=== PATIENT | male | born 1950 | race Caucasian/White ===

== ENCOUNTER 2019-08-23 11:08 | Outpatient (RCR) | payer MEDICARE, SELFPAY ==
--- NOTE | 2019-08-23 16:27 | ST.OPIE ---
Visit Care Team Role Provider Type Delfino Lazo MD Primary Care Provider Physician Specialty: Family Practice Address: [facility] [address], [address] [place] [address], [place], [address] Email: [email or web address] Paul Chavarria MD Attending Provider Physician Specialty: Ear, Nose, Throat Address: [address] [place] [address], [id number] Email: [email or web address] Speech-Language Pathology Initial Evaluation CARD SERVICES SPECIALIST Voice Resonance Evaluation Start: 08/23/19 14:55 Freq: Status: Active Protocol: Document 08/23/19 14:56 LNK (Rec: 08/23/19 15:34 LNK [id number]) Voice and Resonance Assessment Session Time Visit Start Time 11:30 Visit Stop Time 12:30 Total Visit Minutes 60 Visit Information Visit Number 1 Plan of Care Dates 08/22/19-11/21/19 Next Note Type Next Note Type Re-Evaluation Referral Referring Physician Dr Chavarria Setting Setting Outpatient Care Patient History General Information Ashvin (Leilani Grigsby was seen today at the referral of Dr. Chavarria. According to the referral, the pt was scheduled for a dysphagia evaluation. However, when brought up to him, he denied any problems with swallowing. I'm here for my speech, Braxton noted. According Braxton's report of his medical history, he was diagnosed with right tonsillar cancer approximately 3 years ago. He has not had conventional treatment for his cancer. He recently returned from [facility] where he was treated via a program utilizing supplements, alternative treatments and diet. He reports that his tumor has shrunk with this program. Oral Motor Assessment Source: [employer] ([employer]IZ[employer]). Oral-Motor Eval Completed Yes Oral-Motor Assessment Diminished strength, speech and ROM of oral structures on the right side of his face. At rest there is no facial droop. When broadly smiling, there is diminished movement of the lower right 1/3 of his face. He reports that the rest of the right side of his face is still not normal. 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 Intraorally, the right side of Braxton's velum presents with reduced tissue and a deviation beyond the right faucial pillar, when he says the hole to the nasal cavity is located. There is reduced range of motion of the velum on phonation. Braxton's dentition is natural teeth in good health and hygiene. Lingual strength, speed and strength were WFL. 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 He demonstrated right side weakness of his lower 1/3 of his face. Additionally, Braxton's voice was hypernasal. 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 As a result, Braxton reported that his voice is hypernasal and he needs to be careful drinking liquids or the liquid will come out of his nose. - Laryngeal Performance Resonance Nasal Resonance Hypernasal,Nasal Emission, Assimilation Nasality Therapeutic Techniques Other Tactics Discussed a prosthetic device to close the hole in his velar area. this will reduce the hypernasal vocal quality and keep fluids for going into his nasal cavity. Voice/Resonance Assessment Assessment Braxton Grigsby presented with s/p alternative cancer treatment, which has effective in reducing the size of the tumor . He presented with Bird's palsy and a hypernasal vocal quality. Discussion of a prosthetic obtruator to close the opening to his nose was pursued. Pt education re: the nature of the the obturator was provided. It was recommended that Braxton be referred to [facility]'s dental program e: prosthetic obturator and/or to the cleft palate clinic re: resonance. Finally, speech therapy was recommended after Braxton gets the prosthesis to address any residual hypernasality . Prognosis Rehabilitation Potential Good - Recommendations Treatment Recommended Yes Therapy Recommendations Speech therapy was recommended after Braxton gets the prosthesis to address any residual hypernasality. Referrals Voice/Resonance Other Referral [facility] dental clinic for prosthesis and cleft palate clinic for resonance Patient/Caregiver Education Patient/Family Education Patient Understanding
--- NOTE | 2019-11-22 11:13 | ST.OPDS ---
Visit Care Team Role Provider Type Delfino Lazo MD Primary Care Provider Physician Address: [facility] [address], [address] [facility], [place], [address] Paul Chavarria MD Attending Provider Physician Address: [address] [place] [address], [address] RECORDING ENGINEER Treatment Note RECORDING ENGINEER Treatment Note Start: 08/23/19 14:55 Freq: Status: Active Protocol: Document 11/22/19 11:10 LNK (Rec: 11/22/19 11:13 LNK [id number]) Speech Pathology Treatment Note Visit Type Note Type Discharge Summary General Information General Information According Braxton's report of his medical history, he was diagnosed with right tonsillar cancer approximately 3 years ago. He has not had conventional treatment for his cancer. He recently returned from [facility] where he was treated via a program utilizing supplements, alternative treatments and diet. He reports that his tumor has shrunk with this program. Pt education re: the nature of the the obturator was provided. It was recommended that Braxton be referred to [facility]'s dental program e: prosthetic obturator and/or to the cleft palate clinic re: resonance. Finally, speech therapy was recommended after Braxton gets the prosthesis to address any residual hypernasality . Subjective Comment Pt has not returned to this clinic since the initial assessment. Assessment Progress Towards Goals Appropriate for Discharge Plan Frequency of Treatment No Further Therapy Therapy Recommendations Discharge to Home Exercise Program
== END 2019-11-22 13:08 ==
LOC: SP 11:08
PROVIDERS: PCP Family Medicine Geriatric Medicine; Visit Provider Otolaryngology
DX: R13.19 Other dysphagia (principal); C09.9 Malignant neoplasm of tonsil, unspecified
CPT/HCPCS: 92524

== ENCOUNTER → 2022-01-31 12:59 | Outpatient (CLI) | payer MEDICARE, SELFPAY ==
--- NOTE | 2022-01-31 | DI.NM.S_ITS ---
PROCEDURE: [place] BONE SCAN WHOLE BODY RADIOPHARMACEUTICAL: 19.4 mCi Tc-99m MDP IV. 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 Anterior and posterior views were acquired from vertex to feet. Additional left and right oblique views of the pelvis were obtained. COMPARISON: None. FINDINGS: Degenerative uptake of radiotracer at the acromioclavicular, glenohumeral, knee, and ankle joints is present. No increased radiotracer uptake to indicate metastasis. There appears to be mild to moderate left hydronephrosis. IMPRESSION: 1. No evidence of bony metastasis. 2. Left hydronephrosis. This could be further assessed initially with ultrasound, if clinically indicated. Dictated by: Shawn Talbot M.D. on 01/31/2022 at 16:46 Approved by: Shawn Talbot M.D. on 01/31/2022 at 16:47
== END ==
PROVIDERS: PCP Family Medicine
DX: C61 Malignant neoplasm of prostate (principal); C79.51 Secondary malignant neoplasm of bone; N13.30 Unspecified hydronephrosis
CPT/HCPCS: 78306; A9503

== ENCOUNTER 2023-03-20 10:03 | Day surgery (SDC) | payer MEDICARE, SELFPAY ==
[2023-03-20] VITALS (10 sets, daily range): BP systolic 118–137; BP diastolic 58–71; PULSE 54–68; RESP 10–16; TEMP 36.1; O2SAT 94–100; BMI 25.1
[2023-03-20] MEDS: LACTATED RINGERS 1,000 ML 100 ML IV ×2 (10:33→14:04)
--- NOTE | 2023-03-20 11:12 | SUR.PREOP ---
Right chest wall portacath site accessed using sterile technique using 20 gauge 1.0 inch power port needle; good blood return noted, flushes well; tolerated well. Sterile dressing applied. IV fluids infusing without difficulty.
--- NOTE | 2023-03-20 11:44 | PM.PREOP ---
Pre-operative Note Interval Note History & Physical reviewed/Exam performed by Physician: Yes Changes to H&P: No
[2023-03-20] MEDS: CEFAZOLIN 2 GM/100 ML PREMIX 100 ML IV (12:06)
--- NOTE | 2023-03-20 12:17 | SUR.OPER ---
Supine on padded OR bed, head on pillow, arms secured on padded arm boards at <90 degrees abduction, legs uncrossed, safety belt at thigh, tape over blanket over lower legs.
--- NOTE | 2023-03-20 13:01 | PM.OP.1 ---
Operative Date/Time/Diagnoses Date of procedure: 03/20/23 Time of procedure: 13:01 Pre-op diagnosis: umbilical hernia Post-op diagnosis: same Procedure & Clinicians Procedure: Open umbilical hernia repair with mesh Same procedure as scheduled: Yes Indications: Symptomatic reducible umbilical hernia Surgeon: Alexey Weeks Click Yes if Unassisted: Yes Anesthesia Type: General Operative Notes Findings: 2 cm fascial defect containing omentum Specimen(s): none sent Estimated Blood Loss (mL): 10 Procedure in detail: Patient was brought to the operating room placed supine on the table. Bilateral lower extremity compression devices were applied. General anesthesia was induced and they were intubated with an endotracheal tube. They received 2 g of Ancef prior to skin incision. They were prepped and draped in sterile fashion. A time-out was performed. A curvilinear incision was made inferior to the umbilicus. The subcutaneous tissues were divided. The umbilical hernia was identified and the hernia sac was dissected off the umbilical skin and circumferentially off of the fascia defect. The hernia sac was sharply opened and contained viable omentum. The omentum was reduced back into the abdomen. Using blunt dissection I carefully carefully freed the hernia sac from beneath the fascia defect in order to accomodate the mesh. The fascia defect was 1.5 cm in maximal diameter. A Bard Ventralex ST hernia patch 4 cm was inserted beneath the fascia defect and above the peritoneum in a sublay position. The mesh was anchored in multiple locations using Ethibond suture to the fascia and the fascial defect was closed over the mesh. The umbilical skin was tacked to the subcutaneous tissues and then the remainder of the subcutaneous tissues were reapproximated using 3 0 Vicry,l skin closed with 4 0 Monocryl followed by the application of Dermabond and Steri-Strips. Sponge instrument count at the end of the operation was correct. Patient tolerated procedure well was extubated and transferred to postoperative care unit in stable condition. Complications: none Post-operative Condition: stable Disposition: same day surgery
[2023-03-20] MEDS: OXYCODONE/ACETAMINOPHEN 5/325 TABLET 1 TAB PO ×2 (13:17→13:49)
[2023-03-20] MEDS: MORPHINE 10 MG/ML INJ IV ×3 (13:18→13:37)
[2023-03-20] MEDS: ONDANSETRON 4 MG/2 ML INJ IV (13:49)
[2023-03-20] MEDS: HYDROMORPHONE 2 MG INJ ×2 (13:50→14:01)
--- NOTE | 2023-03-20 14:53 | SUR.PHASEI ---
Patient ambulating to the bathroom to void. Minimal assistance needed. Instructed patient that he needed to void [place]
--- NOTE | 2023-03-20 15:13 | SUR.PHASEII ---
Patient using [employer] for transport to [facility]. Orders placed by Dr Weeks.
== END 2023-03-20 15:13 | disposition home or self-care (01) ==
PROVIDERS: PCP Family Medicine; Referring Provider Surgery; Visit Provider Surgery
PROC: (CPT 49591; principal; 2023-03-20 11:30)
DX: K42.9 Umbilical hernia without obstruction or gangrene (principal)
CPT/HCPCS: 49591; J0690; J1100; J1170; J2270; J2405; J2704; J3010

== ENCOUNTER → 2023-06-25 10:47 | Outpatient (CLI) | payer MEDICARE, SELFPAY ==
--- NOTE | 2023-06-25 | DI.NM.S_ITS ---
PROCEDURE: [place] BONE SCAN WHOLE BODY RADIOPHARMACEUTICAL: 20.4 mCi Tc-99m MDP IV. INDICATIONS: Malignant neoplasm of prostate TECHNIQUE: Delayed whole-body scintigrams were obtained approximately 3-4 hours after intravenous injection of radiotracer. Anterior and posterior views were acquired from vertex to feet. COMPARISON: [place], [place], [place] BONE SCAN WHOLE BODY, 01/31/2022, 16:06. FINDINGS: There is abnormal uptake in the right acetabulum. There is increased activity in the medial aspect of the right 4th and 5th ribs. Increased uptake in the maxilla and right mandible is most likely secondary to dental disease. No lesions are identified in skull, sternum, clavicles, scapulae, and visualized shafts of the long bones. There are foci of increased uptake in cervical, thoracic and lumbar spine most likely secondary to degenerative disc and facet disease; early metastasis to spine could be obscured by degenerative changes. There are foci of increased periarticular activity involving shoulders, sternoclavicular joints, elbows, wrists, hands, hips, SI joints, knees, ankles and feet, compatible with degenerative/arthritic changes. Bladder is distended, partially obscure pelvis. IMPRESSION: 1. Abnormal uptake in the right acetabulum. Recommend radiographic correlation. 2. Increased activity in the medial aspect of the right 4th and 5th ribs. Recommend radiographic correlation. 3. 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 Dictated by: Analilia Dash M.D. on 06/25/2023 at 15:10 Approved by: Analilia Dash M.D. on 06/26/2023 at 8:04
== END ==
PROVIDERS: PCP Family Medicine; Referring Provider Internal Medicine; Visit Provider Internal Medicine
DX: C61 Malignant neoplasm of prostate (principal)
CPT/HCPCS: 78306; A9503